=== PATIENT | female | born 2000 | race African-American/Black ===

== ENCOUNTER 2022-03-30 15:04 | Emergency (ER) | payer SELFPAY ==
[~2022-03-30] VITALS: Ht 167.6 cm; Wt 60.0 kg
[2022-03-30 15:09] VITALS: BP 127/72
== END 2022-03-30 16:32 | disposition home or self-care (01) ==
LOC: ER 15:20
DX: F43.21 Adjustment disorder with depressed mood (principal); D64.9 Anemia, unspecified
CPT/HCPCS: 99283